=== PATIENT | male | born 1980 | race Hispanic/Latino ===

== ENCOUNTER 2016-06-25 14:27 | Emergency (ER) | payer OTHER ==
[2016-06-25] MEDS ORDERED: Benzonatate 100 MG CAP ONE (14:41)
[2016-06-25] MEDS ORDERED: Acetaminophen 500 MG TAB ONE (14:41)
--- NOTE | 2016-06-25 15:33 | RAD ---
CHEST TWO VIEWS: History: Chest pain. Cough. FINDINGS: No comparison. The cardiac silhouette and pulmonary vasculature are unremarkable. Mediastinum is mid line. There is no confluent airspace consolidation, pneumothorax, or pleural fluid evident. IMPRESSION: No active cardiopulmonary abnormalities are demonstrated. POS: [facility]
== END 2016-06-25 15:12 | disposition home or self-care (01) ==
LOC: NAV ERS 14:27
DX: J06.9 Acute upper respiratory infection, unspecified (principal); Z71.6 Tobacco abuse counseling; F17.210 Nicotine dependence, cigarettes, uncomplicated
CPT/HCPCS: 71020; 87081; 87430

== ENCOUNTER 2018-07-22 19:24 | Emergency (ER) | payer OTHER ==
--- NOTE | 2018-07-22 19:54 | RAD ---
EXAM: 3 views of the right ankle HISTORY: Ankle pain after trauma COMPARISON: None FINDINGS: 3 views of the right ankle shows no evidence of acute fracture or dislocation. Moderate dif fuse soft tissue swelling is seen. No degenerative changes are present. IMPRESSION: No evidence of acute osseous abnormality.
[2018-07-22] MEDS ORDERED: Ibuprofen 800 MG TAB ONE (20:01)
== END 2018-07-22 20:05 | disposition home or self-care (01) ==
LOC: NAV ERS 19:24
DX: S93.401A Sprain of unspecified ligament of right ankle, initial encounter (principal); F17.210 Nicotine dependence, cigarettes, uncomplicated; W01.0XXA Fall on same level from slipping, tripping and stumbling without subsequent striking against object, initial encounter

== ENCOUNTER 2023-04-17 17:29 | Emergency (ER) | payer OTHER ==
[2023-04-17] MEDS ORDERED: Lidocaine 1% (PF) 30 ML VIAL ONE (18:44)
[2023-04-17] MEDS ORDERED: Ibuprofen 200 MG TAB ONE (18:44)
[2023-04-17] MEDS ORDERED: Sulfameth/Trimethoprim DS 800-160mg TAB ONE (18:44)
[2023-04-17] MEDS ORDERED: Bacitracin 1 PK ONE (18:44)
[2023-04-17] MEDS ORDERED: Boostrix 0.5 ML (Tdap) VIAL (>/=7 yrs of age) ONE (18:44)
== END 2023-04-17 19:33 | disposition home or self-care (01) ==
LOC: NAV ERS 17:29
DX: L03.012 Cellulitis of left finger (principal); F17.210 Nicotine dependence, cigarettes, uncomplicated
CPT/HCPCS: 26010; 90471; 90715; J2001